=== PATIENT | female | born 1935 | race Caucasian/White ===

== ENCOUNTER 2016-06-25 18:19 | Observation (INO) | payer MEDICARE ==
[~2016-06-25] VITALS: Ht 157.5 cm; Wt 74.1 kg
[~2016-06-25 18:19] MED LIST: FLOVENT HFA 410.6 GM INH; SINGULAIR10 MG PO; TENORMIN25 MG PO; TUDORZA PRESS400 MCG INH
[2016-06-25 18:42] LABS: BASOPHILS 0.3 % (0.0-2.0); EOSINOPHILS 1.8 % (0-7); HEMATOCRIT 44.7 % (36.0-48.0); HEMOGLOBIN 14.9 g/dL (12-16); IMMATURE GRANULOCYTES 0.3 % (0-5); LYMPHOCYTES 26.7 % (15-50); MCH 29.8 pg (26.0-34.0); MCHC 33.3 g/dL (31.0-37.0); MCV 89.4 fL (80.0-100.0); MEAN PLATELET VOLUME 11.8 fL (7.4-10.4); MONOCYTES 4.5 % (2-11); NEUTROPHILS 66.4 % (40-80); RDW 14.8 % (11.5-14.5); WBC 11.8 10x3/uL (4.8-10.8)
[2016-06-25 18:45] LABS: PLATELET COUNT 297 10x3/uL (130-400)
[2016-06-25 19:06] LABS: ALBUMIN 3.7 g/dL (3.4-5.0); ALKALINE PHOSPHATASE 76 U/L (46-116); ALT (SGPT) 23 U/L (10-68); CALCIUM 9.3 mg/dL (8.5-10.1); CARBON DIOXIDE 23.6 mmol/L (21.0-32.0); CHLORIDE - SERUM 102 mmol/L (98-107); CREATININE - SERUM 1.3 mg/dL (0.6-1.3); POTASSIUM - SERUM 3.8 mmol/L (3.5-5.1); PROTEIN - SERUM 7.7 g/dL (6.4-8.2); SODIUM 139 mmol/L (136-145); UREA NITROGEN 21 mg/dL (7-18); eGFR NON AFRICAN AMERICAN 42 mL/min (90-120)
[2016-06-25 19:10] LABS: CREATINE KINASE 84 UL (21-215)
[2016-06-25 19:21] LABS: CALC OSMOLALITY 286 mosm/kg (275-300); GLUCOSE 211 mg/dL (74-106); TROPONIN-I < 0.017 ng/mL (0.000-0.060)
[2016-06-26 07:30] VITALS: BP 143/65; Ht 157.5 cm; Wt 74.1 kg
--- NOTE | 2016-06-26 08:44 | NUR ---
patient is awake and alert, sitting up in her bed. spouse at the bedisde in chair. she denies discomfort. dr. cueva has been in to see her.
--- NOTE | 2016-06-26 08:45 | NUR ---
PATIENT IS EXPECTING TO GO HOME [facility]. APPTS BEING MADE.
[2016-06-26] MEDS ORDERED: PROVENTIL/2.5 MG/3 M INH ×2 (09:39→10:02)
[2016-06-26] MEDS ORDERED: BETAPACE AF80 MG PO (10:01)
[2016-06-26] MEDS ORDERED: ASPIRIN325 MG PO (10:01)
[2016-06-26] MEDS ORDERED: SINGULAIR10 MG PO (10:02)
[2016-06-26] MEDS ORDERED: TENORMIN25 MG PO (10:03)
--- NOTE | 2016-06-26 10:25 | NUR ---
IV SL REMOVED FROM THE PATIENT'S RIGH WRIST. DISCUSSED DISCHARGE INSTRUCTIONS, INCLUDED FOLLOW UP APPT, MEDICATIONS, AND MONITORING HER B/P WITH INSTRUCTIONS TO CALL [facility] OFFICE WITH ANY CHANGES OR CONCERNS FOR GUIDANCE. SHE VOICED UNDERSTANDING. SPOUSE AT THE BEDSIDE AND VOICED UNDERSTANDING WELL.
--- NOTE | 2016-07-02 14:38 | CN ---
PATIENT NAME:JEANNE BUCHANAN MEDICAL RECORD: [id number] : 39 LOCATION:D. D.1211 ADMIT DATE: 06/25/16 ACCOUNT: [id number] CONSULTING PHYSICIAN: ELAN NAIR MD REFERRING PHYSICIAN: CHARLIE DENG MD DATE OF CONSULTATION: 06/26/2016 Cardiology Consultation ADMITTING DIAGNOSES: 1. Paroxysmal atrial fibrillation. 2. Abnormal ECG. HISTORY OF PRESENT ILLNESS: Mrs. Buchanan presents with palpitations. She has a history of palpitations. She was found to be in atrial fibrillation with rapid response. She was given IV Cardizem. She converted to sinus rhythm. She did have ST-T changes on her EKG, but no chest pain with this. Troponin is normal. PHYSICAL EXAMINATION: GENERAL APPEARANCE: Well-nourished, well-developed, appears stated age. Level of distress, comfortable. PSYCHIATRIC: Mental status, alert, normal affect. Orientation, oriented to time, place and person. EYES: Lids and conjunctiva, noninjected. No discharge, no pallor. ENT: Lips, teeth, gums, normal dentition. Oropharynx, no cyanosis, no pallor. NECK: Carotid arteries, bilateral normal upstroke, no bruits, no thrills. JUGULAR VEINS: No jugular venous pressure or distention. CERVICAL LYMPH NODES: Nontender, nonenlarged. THYROID: Not enlarged. Nontender. No nodules. LUNGS: Respiratory effort, unlabored. CHEST: Normal curvature. No thoracic deformity. No chest wall tenderness. Percussion, resonant. Auscultation, clear. No wheezes, no rales, no rhonchi. CARDIOVASCULAR: Precordial exam, nondisplaced. No heaves or pericardial thrills. Rate and rhythm, regular. Heart sounds, normal S1, normal S2. No S3, no gallop, no rub. Systolic murmur, not heard. Diastolic murmur, not heard. EXTREMITIES: No cyanosis, no edema. Peripheral pulses, full and equal in all extremities, except as noted. No bruits appreciated. ABDOMEN: Soft, nondistended. Normal aorta. No bruit. Nontender. No masses. Liver, nontender, no hepatomegaly. Spleen, nontender, no splenomegaly. MUSCULOSKELETAL: No joint tenderness. No joint swelling. No erythema. NEUROLOGICAL: Normal gait, normal strength, normal tone. SKIN: Warm and dry. REVIEW OF SYSTEMS: The patient reports easy bruising but reports no swollen glands. The patient reports no fever, no night sweats, no significant weight gain, no significant weight loss. No significant exercise tolerance. The patient reports no dry eyes, no irritation, no vision change. Patient reports no difficulty hearing and no ear pain. Patient reports no frequent nose bleeds or nose and sinus problems. Patient reports on arm pain on exertion. No shortness of breath while lying down. No history of heart murmur. Patient reports no cough, no wheezing or coughing up blood. Patient reports no abdominal pain, no vomiting. Normal appetite. No diarrhea and not vomiting blood. No nausea and no constipation. Patient reports no incontinence. No difficulty urinating. No hematuria. No increased frequency. Patient reports no muscle aches. No weakness, no arthralgias, no back pain. No swelling of the CONSULT REPORT [id number] JEANNE BUCHANAN extremities. Patient reports no abnormal mole, no jaundice, no rashes. Reports no loss of consciousness. No weakness and no numbness. No seizures, dizziness, or headaches. The patient reports no depression, no sleep disturbance, feeling safe in a relationship and no alcohol abuse. Patient reports on fatigue. Reports no runny nose or sinus pressure. No itching, no hives, and no frequent sneezing. OVERALL IMPRESSION: Paroxysmal atrial fibrillation. At this time, we will start sotalol 80 mg b.i.d. We will set her up for a stress test in the office as an outpatient. TRANSINT:[id number] Voice Confirmation ID: [id number] DOCUMENT ID: [id number] ELAN NAIR MD at 1438 CC: [id number] DICTATION DATE: 06/26/16 0757 REDUCTION FURNACE OPERATOR HELPER: 06/26/16 0840 DIS IN 06/26/16 [id number] [place] [address]
== END 2016-06-26 10:28 | disposition home or self-care (01) ==
LOC: D.ER 18:19 → D.M3 20:05 → OBSVTIME 20:05 → D.M3 06-26 10:28
PROVIDERS: Emergency Medicine; ADMIT Family Medicine
DX: I48.0 Paroxysmal atrial fibrillation (principal); R94.31 Abnormal electrocardiogram [ECG] [EKG]

== ENCOUNTER → 2016-07-08 19:40 | Outpatient (CLI) | payer MEDICARE ==
[2016-06-26 07:30] VITALS: BMI 29.9
[~2016-07-08 19:40] MED LIST changes: +ASPIRIN325 MG PO; +BETAPACE AF80 MG PO; +PROVENTIL/2.5 MG/3 M INH
== END | disposition home or self-care (01) ==
LOC: D.SLEEP 19:40
DX: G47.33 Obstructive sleep apnea (adult) (pediatric) (principal)

== ENCOUNTER → 2016-11-01 08:20 | Outpatient (CLI) | payer MEDICARE ==
[2016-06-26 07:30] VITALS: BMI 29.9
== END | disposition home or self-care (01) ==
LOC: D.RT 08:20
DX: J45.909 Unspecified asthma, uncomplicated (principal)

== ENCOUNTER → 2017-02-24 09:08 | Outpatient (CLI) | payer MEDICARE ==
[2016-06-26 07:30] VITALS: BMI 29.9
== END | disposition home or self-care (01) ==
LOC: D.CT 09:08
DX: R93.8 Abnormal findings on diagnostic imaging of other specified body structures (principal)

== ENCOUNTER → 2017-04-29 12:30 | Outpatient (CLI) | payer MEDICARE ==
[2016-06-26 07:30] VITALS: BMI 29.9
== END | disposition home or self-care (01) ==
LOC: D.RAD 12:30
DX: J45.909 Unspecified asthma, uncomplicated (principal); J84.9 Interstitial pulmonary disease, unspecified

== ENCOUNTER → 2017-11-04 13:20 | Outpatient (CLI) | payer MEDICARE ==
[2016-06-26 07:30] VITALS: BMI 29.9
== END | disposition home or self-care (01) ==
LOC: D.RT 13:20
DX: J84.9 Interstitial pulmonary disease, unspecified (principal)

== ENCOUNTER → 2017-11-06 12:56 | Outpatient (CLI) | payer MEDICARE ==
[2016-06-26 07:30] VITALS: BMI 29.9
[2017-11-06 14:36] LABS: BASOPHILS 0.2 % (0-2); CREATININE - SERUM 1.1 mg/dL (0.6-1.3); EOSINOPHILS 1.7 % (0-7); HEMATOCRIT 42.4 % (36.0-48.0); HEMOGLOBIN 14.3 g/dL (12-16); IMMATURE GRANULOCYTES 0.2 % (0-5); LYMPHOCYTES 19.7 % (15-50); MCHC 33.7 g/dL (31.0-37.0); MCV 89.1 fL (80.0-100.0); MEAN PLATELET VOLUME 11.4 fL (7.4-10.4); MONOCYTES 5.4 % (2-11); NEUTROPHILS 72.8 % (40-80); RBC 4.76 10x6/uL (4.00-5.40); WBC 8.9 10x3/uL (4.8-10.8)
[2017-11-06 14:46] LABS: PLATELET COUNT 209 10x3/uL (130-400)
[2017-11-06 16:07] LABS: ERYTHROCYTE SEDIMENTATION RATE 28 mm/hr (0-30)
== END | disposition home or self-care (01) ==
LOC: D.CT 12:56
PROVIDERS: Internal Medicine Gastroenterology
DX: R10.9 Unspecified abdominal pain (principal); R10.32 Left lower quadrant pain

== ENCOUNTER → 2017-11-13 11:02 | Outpatient (CLI) | payer MEDICARE ==
[2016-06-26 07:30] VITALS: BMI 29.9
== END | disposition home or self-care (01) ==
LOC: D.NM 11:02
DX: R93.8 Abnormal findings on diagnostic imaging of other specified body structures (principal)

== ENCOUNTER → 2018-05-19 08:41 | Outpatient (CLI) | payer MEDICARE ==
[2016-06-26 07:30] VITALS: BMI 29.9
== END | disposition home or self-care (01) ==
LOC: D.RT 08:41
DX: J84.9 Interstitial pulmonary disease, unspecified (principal)

== ENCOUNTER → 2018-09-14 11:29 | Outpatient (CLI) | payer MEDICARE ==
[2016-06-26 07:30] VITALS: BMI 29.9
== END | disposition home or self-care (01) ==
LOC: D.RAD 11:29
PROVIDERS: ATTEND Internal Medicine Pulmonary Disease
DX: J45.909 Unspecified asthma, uncomplicated (principal)

== ENCOUNTER → 2019-01-01 08:16 | Outpatient (CLI) | payer MEDICARE ==
[2016-06-26 07:30] VITALS: BMI 29.9
== END | disposition home or self-care (01) ==
LOC: D.RT 08:16
PROVIDERS: ATTEND Internal Medicine Pulmonary Disease
DX: J84.9 Interstitial pulmonary disease, unspecified (principal); J45.909 Unspecified asthma, uncomplicated

== ENCOUNTER → 2019-02-25 10:30 | Outpatient (CLI) | payer MEDICARE ==
[2016-06-26 07:30] VITALS: BMI 29.9
--- NOTE | 2019-03-02 08:49 | EC ---
PATIENT:JEANNE ANDREW DATE OF SERVICE: 02/25/19 SEX: F MEDICAL RECORD: [id number] DATE OF : 39 LOCATION:D.[facility] AGE OF PATIENT: 83 ADMISSION DATE: 02/25/19 REFERRING PHYSICIAN: INTERPRETING PHYSICIAN: PADMINI BANERJEE MD ECHOCARDIOGRAM REPORT ECHO CHARGES 4 ECHO COMPLETE Date: 02/25/19 CLINICAL DIAGNOSIS: ATRIAL FIB,HTN,HX AO SCL.,TRACE TR ECHOCARDIOGRAPHIC MEASUREMENTS (adult normal given) AC root (d.<3.7cm) 3.0 cm LV Septum d (<1.2 cm> 1.1 cm Valve Excursion 1.3 cm LV Septum (systole) 1.4 cm Left Atria (s.<4.0cm> 3.2 cm LVPW d(<1.2cm) 1.3 cm RV (d.<2.3cm) 3.3 cm LVPW (sytole) 1.7 cm LV diastole(<5.6CM) 3.8 cm MV E-F(>70mm/sec) cm LV systole 2.3 cm LVOT Diameter 1.8 cm MV exc.(>10mm) 1.3 cm Est.ejection fraction (50-75%) % DOPPLER: LVIT cm/sec A 86.0 cm/sec E 72.0 cm/sec LA cm/sec RVSP 33 mmHg LVOT 88 cm/sec AOP1/2T m/s Asc. Ao 116 cm/sec RVOT 70 cm/sec RA cm/sec PA 109 cm/sec AV Gradient Peak 5.40 mmHg AV Mean 3.13 mmHg AV Area 2.0 cm MV Gradient Peak 4.98 mmHg MV Mean 2.18 mmHg MV Area cm COMMENTS: Veterans Contact Representative: 2 [employer] Store Manager: 3 Dr. Garcia TAPE# PACS Pericardial Effusion N DATE OF SERVICE: Adequate 2D, color flow imaging, spectral Doppler, and M-Mode No LVH. LV internal dimension is normal. Wall motion is normal. EF is greater than or equal to 55%. Aortic valve is tricuspid. No evidence of stenosis by Doppler interrogation. Left atrium is normal. Mitral valve shows no prolapse. Trace MR. Right-sided chambers are grossly normal. Trace TR. TRANSINT:[id number] Voice Confirmation ID: [id number] DOCUMENT ID: [id number] ECHOCARDIOGRAM REPORT [id number] JEANNE ANDREW,PADMINI Fitch MD at 0849 CC: [id number] DICTATION DATE: 02/27/19 1040 MARKETING ANALYTICS LEAD: 02/27/19 1236 DEP CLI 02/25/19 [place] [id number] [place] [id number]
== END | disposition home or self-care (01) ==
LOC: D.HCCECHO 10:30
PROVIDERS: ATTEND Internal Medicine Interventional Cardiology
DX: I48.91 Unspecified atrial fibrillation (principal)

== ENCOUNTER → 2019-12-21 16:23 | Outpatient (CLI) | payer MEDICARE ==
[2019-06-11 14:09] VITALS: BMI 26.0
[~2019-12-21 16:23] MED LIST changes: +BREO ELLIPTA 11 EACH INH; +FUROSEMIDE20 MG PO; +GLUCOPHAGE500 MG PO; +HYDROXYZINE HCL10 MG PO; +LEVAQUIN750 MG PO; +LISINOPRIL10 MG PO; +MEDROL DOSE PACK4 MG PO; +METFORMIN HCL500 M1 PO; +MUCINEX600 MG PO; +PEPCID AC20 MG PO; +Xopenex 0.63 MG INH UPD
[2019-12-21 16:41] LABS: BASOPHILS 0.3 % (0-2); EOSINOPHILS 3.1 % (0-7); HEMATOCRIT 40.8 % (36.0-48.0); HEMOGLOBIN 13.1 g/dL (12-16); IMMATURE GRANULOCYTES 0.2 % (0-5); LYMPHOCYTES 24.7 % (15-50); MCH 28.1 pg (26.0-34.0); MCHC 32.1 g/dL (31.0-37.0); MCV 87.4 fL (80.0-100.0); MEAN PLATELET VOLUME 11.4 fL (7.4-10.4); MONOCYTES 6.5 % (2-11); NEUTROPHILS 65.2 % (40-80); PLATELET COUNT 309 10x3/uL (130-400); RBC 4.67 10x6/uL (4.00-5.40); RDW 15.9 % (11.5-14.5); WBC 9.5 10x3/uL (4.8-10.8)
[2019-12-21 17:20] LABS: ALBUMIN 3.5 g/dL (3.4-5.0); ANION GAP 12.7 mmol/L (8-16); BILIRUBIN - DIRECT 0.07 mg/dL (0.00-0.30); BILIRUBIN - INDIRECT 0.11 mg/dL (0.00-1.00); BILIRUBIN - TOTAL 0.18 mg/dL (0.2-1.3); CALCIUM 8.8 mg/dL (8.5-10.1); CARBON DIOXIDE 24.6 mmol/L (21.0-32.0); CREATININE - SERUM 1.7 mg/dL (0.6-1.3); POTASSIUM - SERUM 4.3 mmol/L (3.5-5.1)
== END | disposition home or self-care (01) ==
LOC: D.LABREF 16:23
PROVIDERS: ATTEND Internal Medicine Pulmonary Disease
DX: J18.9 Pneumonia, unspecified organism (principal); R60.0 Localized edema

== ENCOUNTER → 2019-12-22 13:41 | Outpatient (CLI) | payer MEDICARE ==
[2019-06-11 14:09] VITALS: BMI 26.0
== END | disposition home or self-care (01) ==
LOC: D.RAD 13:41
PROVIDERS: ATTEND Internal Medicine Pulmonary Disease
DX: J18.9 Pneumonia, unspecified organism (principal)